=== PATIENT | female | born 1990 | race African-American/Black ===

== ENCOUNTER 2017-06-29 18:27 | Emergency (ER) | payer OTHER ==
[2017-06-29 18:33] VITALS: BP 155/100; PULSE 90; TEMP 99; BMI 45.9
--- NOTE | 2017-06-29 18:35 | PDOC ---
Rapid Medical Evaluation Chief Complaint: Respiratory Time Seen by Provider: 06/29/17 18:33 Medical Evaluation: Allergies Allergy/AdvReac Type Severity Reaction Status Date / Time No Known Allergies Allergy Verified 06/29/17 18:30 Vital Signs Temp Pulse Resp BP Pulse Ox 99 F 90 19 155/100 97 06/29/17 18:31 06/29/17 18:31 06/29/17 18:31 06/29/17 18:31 06/29/17 18:31 06/29/17 18:33 27yo Female patient that is 9 weeks with no significant past medical history presents to ED c/o possible influenza. Patient states her daughter and daughters' father were diagnosed with flu recently. She denies any other complaints at this time.
--- NOTE | 2017-06-29 19:30 | PDOC ---
History of Present Illness - General Chief Complaint: Respiratory Stated Complaint: COUGHING Time Seen by Provider: 06/29/17 18:33 - History of Present Illness Initial Comments: 06/29/17 19:21 CHIEF COMPLAINT: cough HISTORY OF PRESENT ILLNESS: 27yo F, 9 weeks , with no significant past medical history presents to ED concerns of flu due to new onset cough today. Patient states her daughter and was diagnosed with flu recently and "her father is here too and there's something going on with him too". She denies any fever, vomiting, diarrhea, or any other complaints at this time. No recent travel or sick contacts. PAST MEDICAL HISTORY: Denies past medical history FAMILY HISTORY: Denies SOCIAL HISTORY: Denies tobacco, alcohol, illicit drug use. SURGICAL HISTORY: Denies ALLERGIES: No known drug allergies REVIEW OF SYSTEMS as per HPI PHYSICAL EXAM General Appearance: Well-appearing, appropriately dressed. No apparent distress. HEENT: EOMI, PERRLA. No conjunctival pallor. No photophobia, scleral icterus. Respiratory/Chest: Lungs CTAB. Cardiovascular: RRR. S1, S2. Gastrointestinal/Abdominal: Normal bowel sounds. Abdomen soft, non-distended. No tenderness or rebound tenderness. No organomegaly, pulsatile mass, guarding , hernia, hepatomegaly, splenomegaly. Musculoskeletal/Extremities: Normal inspection. FROM of all extremities, normal capillary refill. Pelvis Stable. No CVA tenderness. No tenderness to extremities, pedal edema, swelling, erythema or deformity. Integumentary: Appropriate color, dry, warm. 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 Fully oriented, alert. Appropriate mood/affect. Motor strength 5/5. No appreciable EOM palsy, facial droop or sensory deficit. Past History - Past Medical History Allergies/Adverse Reactions: Allergies Allergy/AdvReac Type Severity Reaction Status Date / Time No Known Allergies Allergy Verified 06/29/17 18:30 Home Medications: Ambulatory Orders NK [No Known Home Medication] 11/22/15 COPD: No Other medical history: DENIES. - Suicide/Smoking/Psychosocial Hx Smoking History: Never smoked Hx Alcohol Use: Yes (weekends) Drug/Substance Use Hx: No Substance Use Type: None *Physical Exam - Vital Signs Last Vital Signs Temp Pulse Resp BP Pulse Ox 99 F 90 19 155/100 97 06/29/17 18:31 06/29/17 18:31 06/29/17 18:31 06/29/17 18:31 06/29/17 18:31 Medical Decision Making - Medical Decision Making 06/29/17 19:30 27yo F, 9 weeks , with no significant past medical history presents to ED concerns of flu due to new onset cough today. -flu swab *DC/Admit/Observation/Transfer Diagnosis at time of Disposition: Cough - Discharge Dispostion Disposition: HOME Condition at time of disposition: Stable Admit: No - Referrals Referrals: Monroe Will MD [Primary Care Provider] - - Patient Instructions Printed Discharge Instructions: DI for Cough -- Adult Additional Instructions: Your flu test was negative today. As discussed, you may take Tylenol or regular Robitussin for your cough. If you develop any fever, chills, vomiting, diarrhea , vaginal bleeding, abdominal pain, or any new or worsening symptoms, please return to the ER. - Post Discharge Activity
== END 2017-06-29 20:24 | disposition home or self-care (01) ==
LOC: JERFT 18:27
DX: O99.89 Other specified diseases and conditions complicating pregnancy, childbirth and the puerperium (principal); R05 Cough; Z3A.09 9 weeks gestation of pregnancy
CPT/HCPCS: 87804; 99281-25

== ENCOUNTER 2017-08-14 08:28 | Emergency (ER) | payer OTHER ==
[2017-08-14 08:32] VITALS: BP 156/76; PULSE 90; TEMP 98; BMI 47.3
--- NOTE | 2017-08-14 09:24 | PDOC ---
History of Present Illness - General Chief Complaint: Sore Throat Stated Complaint: SORE THROAT Time Seen by Provider: 08/14/17 08:41 History Source: Patient Exam Limitations: No Limitations - History of Present Illness Initial Comments: 08/14/17 09:19 Patient came for evaluation of sore throat pain. He is 15 weeks with twins, and was concerned about intermittent chills and questionable swelling to throat. States is able to drink fluids, has had no fever, has not noted any exudate and no one else at home is sick. Timing/Duration: unsure Severity: mild Associated Symptoms: denies: cough, fever/chills, headaches, malaise, nausea/ vomiting Past History - Travel Traveled outside of the country in the last 30 days: Yes Close contact w/someone who was outside of country & ill: Yes - Past Medical History Allergies/Adverse Reactions: Allergies Allergy/AdvReac Type Severity Reaction Status Date / Time No Known Allergies Allergy Verified 08/14/17 08:30 Home Medications: Ambulatory Orders NK [No Known Home Medication] 11/22/15 COPD: No DVT: No - Suicide/Smoking/Psychosocial Hx Smoking History: Never smoked Information on smoking cessation initiated: No Hx Alcohol Use: Yes (weekends) Drug/Substance Use Hx: No Substance Use Type: None Review of Systems - Review of Systems Able to Perform ROS?: Yes Is the patient limited Kyrgyz proficient: Yes Constitutional: Yes: Symptoms Reported, See HPI, Malaise. No: Fever, Loss of Appetite HEENTM: Yes: Symptoms Reported, See HPI, Throat Pain, Difficulty Swallowing. No : Throat Swelling, Mouth Pain Respiratory: Yes: See HPI. No: Symptoms reported, Cough All Other Systems: Reviewed and Negative *Physical Exam - Vital Signs Last Vital Signs Temp Pulse Resp BP Pulse Ox 98.0 F 90 18 156/76 100 08/14/17 08:30 08/14/17 08:30 08/14/17 08:30 08/14/17 08:30 08/14/17 08:30 - Physical Exam General Appearance: Yes: Nourished, Appropriately Dressed. No: Apparent Distress, Mild Distress HEENT: positive: LEXUS, Normal ENT Inspection, TMs Normal (congested but landmarks easily visualized), Pharyngeal Erythema (mild erythema with posterior sinus drainage noted), Rhinorrhea (clear). negative: Sinus Tenderness Neck: positive: Supple. 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 We'll treat conservatively due to *DC/Admit/Observation/Transfer Diagnosis at time of Disposition: Sinus drainage - Discharge Dispostion Disposition: HOME Condition at time of disposition: Stable Admit: No - Referrals - Patient Instructions Printed Discharge Instructions: DI for Common Cold Additional Instructions: Rest, drink lots of fluids: Teas, water, soups, Pedialyte Saltwater gargles Steamy showers/seem to face break up mucus Avoid contact with others until fevers and cough resolved Lots of handwashing and good hygiene Continue [id number] medications for symptomatic relief Tylenol or Motrin for fever and pain Followup with private physician in one to 2 days as needed Return to emergency department for worsened symptoms, fevers, dehydration - Post Discharge Activity
== END 2017-08-14 09:36 | disposition home or self-care (01) ==
LOC: JERFT 08:28
DX: O26.892 Other specified pregnancy related conditions, second trimester (principal); J34.89 Other specified disorders of nose and nasal sinuses; R09.82 Postnasal drip; Z3A.15 15 weeks gestation of pregnancy
CPT/HCPCS: 99281-25

== ENCOUNTER 2018-07-27 23:09 | Emergency (ER) | payer OTHER ==
[2018-07-27 23:13] VITALS: BP 174/105; PULSE 106; TEMP 98; BMI 47.3
[2018-07-27] MEDS ORDERED: diphenhydrAMINE HCL 50 MG CAPSULE PO ONE (23:20)
[2018-07-27] MEDS ORDERED: diphenhydrAMINE HCL 25 MG CAPSULE (FP) PO ONE (23:31)
--- NOTE | 2018-07-27 23:31 | PDOC ---
History of Present Illness - General Chief Complaint: Allergic Reaction Stated Complaint: ALLERGIC REACTION Time Seen by Provider: 07/27/18 23:18 History Source: Patient Exam Limitations: No Limitations - History of Present Illness Initial Comments: 07/27/18 23:26 Pt is a 28yo F with no significant PMH presenting to ED with complaints of hives and pruritis. Pt states that the hives started a few hours ago and was mainly on the L arm but has now spread all over. She has a history of getting hives and itchiness but it has never spread as much as it has today. She does not recall any triggers but thinks it might have been old glitter make up that has got on her skin. She states that sometimes when she cooks shrimp she gets some hives but was not around shrimp today. Denies new lotions, soaps, detergents. Denies SOB, wheezing, cough, abdominal pain, n/v/d, fevers, chills, lightheadedness. PMD: Wood PMH: none PSH: none Meds: none Allergies: nkda Social: social alcohol use Past History - Past Medical History Allergies/Adverse Reactions: Allergies Allergy/AdvReac Type Severity Reaction Status Date / Time No Known Allergies Allergy Verified 07/27/18 23:13 Home Medications: Ambulatory Orders Diphenhydramine HCl [Benadryl -] 25 mg PO Q8H #30 capsule 07/28/18 COPD: No DVT: No - Suicide/Smoking/Psychosocial Hx Smoking History: Never smoked Hx Alcohol Use: Yes (weekends) Drug/Substance Use Hx: No Substance Use Type: None Review of Systems - Review of Systems Constitutional: No: Chills, Fever HEENTM: No: Ear Pain, Nose Pain, Throat Pain, Throat Swelling Respiratory: No: Cough, Shortness of Breath, Wheezing Cardiac (ROS): No: Chest Pain, Lightheadedness, Palpitations, Syncope ABD/GI: No: Constipated, Diarrhea, Nausea, Vomiting, Abdominal cramping : No: Burning, Dysuria Musculoskeletal: No: Back Pain, Muscle Pain, Neck Pain Integumentary: Yes: See HPI, Erythema, Pruritus, Other (urticaria) Neurological: No: Headache, Numbness, Tingling, Weakness *Physical Exam - Vital Signs Last Vital Signs Temp Pulse Resp BP Pulse Ox 98.0 F 106 H 18 174/105 H 97 07/27/18 23:11 07/27/18 23:11 07/27/18 23:11 07/27/18 23:11 07/27/18 23:11 - Physical Exam General Appearance: Yes: Appropriately Dressed, Obese. No: Apparent Distress HEENT: positive: EOMI, LEXUS, Pharynx Normal Neck: positive: Trachea midline, Supple. negative: Lymphadenopathy (R), Lymphadenopathy (L) Respiratory/Chest: positive: Lungs Clear, Normal Breath Sounds. negative: Crackles, Rales, Rhonchi, Stridor, Wheezing Cardiovascular: positive: Regular Rhythm, Regular Rate, S1, S2. negative: Edema , JVD, Murmur Vascular Pulses: Carotid (R): 2+, Carotid (L): 2+, Dorsalis-Pedis (R): 2+, Doralis-Pedis (L): 2+ Gastrointestinal/Abdominal: positive: Normal Bowel Sounds, Soft. negative: Guarding, Rebound, Tenderness Musculoskeletal: negative: CVA Tenderness Extremity: positive: Normal Capillary Refill. negative: Swelling, Calf Tenderness Integumentary: positive: Normal Color, Dry, Warm, Hives (diffuse across arms and legs. 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 Pt states that the hives started a few hours ago and was mainly on the L arm but has now spread all over. She has a history of getting hives and itchiness but it has never spread as much as it has today. She does not recall any triggers but thinks it might have been old glitter make up that has got on her skin. She states that sometimes when she cooks shrimp she gets some hives but was not around shrimp today. Denies new lotions, soaps, detergents. Denies SOB, wheezing, cough, abdominal pain, n/v/d, fevers, chills, lightheadedness. Vitals: HR 106, hypertensive. PE: diffuse hives Pt is otherwise hemodynamically stable. No signs for anaphylaxis. No signs of GI involvement at this time. -Benadryl and Decadron. Rx for Benadryl. Low suspicion for HTN urgency/emergency. Can be dc home. Pt agrees to plan. Given return precautions *DC/Admit/Observation/Transfer Diagnosis at time of Disposition: Hives - Discharge Dispostion Disposition: HOME Condition at time of disposition: Improved - Prescriptions Prescriptions: Diphenhydramine HCl [Benadryl -] 25 mg PO Q8H #30 capsule - Referrals - Patient Instructions Printed Discharge Instructions: DI for Hives Additional Instructions: You were seen in the emergency room today for hives and itching. This is probably due to contact with a substance. A prescription was sent to your pharmacy for Benadryl. Take 25mg by mouth three times per day as needed for hives/itching. If your insurance does not cover this as a prescription, you can find it over the counter. I highly recommend that you see an upkeep worker: Dr. Lindsey Come back to the emergency room if you have difficulty breathing, have diarrhea or vomiting, rash gets worse or if any new concerning symptom develops. Thank you - Post Discharge Activity
[2018-07-28] MEDS ORDERED: DEXAMETHASONE LIQUID 0.5 MG/5 ML 240 ML BULK BOTTLE PO ONE (00:07)
--- NOTE | 2018-07-28 00:09 | PDOC ---
Attending Attestation - HPI HPI: 07/28/18 00:18 The patient is a 28 year old female, with no significant PMH who presents to the emergency department with hives and itchiness, that began a couple of hours ago. The patient notes that the hives appeared on her L arm and has now spread all over her body. The patient notes she has experienced hives before but they have never been this diffuse. The patient does not recall a specific trigger event but notes she was cleaning some of her old makeup, and glitter may have irritated her skin. The patient denies chest pain, shortness of breath, headache and dizziness. Denies wheezing and cough Denies fever, chills, nausea, vomit, diarrhea and constipation. Denies dysuria, frequency, urgency and hematuria. Allergies: NKA - Physicial Exam PE: 07/28/18 00:35 GENERAL: Well developed, well nourished. Awake and alert. No acute distress. HEENT: Normocephalic, atraumatic. PERRLA, EOMI. No conjunctival pallor. Sclera are non- icteric. Moist mucous membranes. Oropharynx is clear. No voice changes. NECK: Supple. Full ROM. No JVD. Carotid pulses 2+ and symmetric, without bruits. No thyromegaly. No lymphadenopathy. CARDIOVASCULAR: Regular rate and rhythm. No murmurs, rubs, or gallops. Distal pulses are 2+ and symmetric. PULMONARY: No evidence of respiratory distress. Lungs clear to auscultation bilaterally. No wheezing, rales or rhonchi. ABDOMINAL: Soft. Non-tender. Non-distended. No rebound or guarding. No organomegaly. Normoactive bowel sounds. MUSCULOSKELETAL Normal range of motion at all joints. No bony deformities or tenderness. No CVA tenderness. EXTREMITIES: No cyanosis. No clubbing. No pitting edema. No calf tenderness. SKIN: +hives on upper extremities bilaterally. +hives on lower extremities but disappearing. Warm and dry. Normal capillary refill. No jaundice. NEUROLOGICAL: Alert, awake, appropriate. Cranial nerves 2-12 intact. No deficits to light touch and temperature in face, upper extremities and lower extremities. No motor deficits in the in face, upper extremities and lower extremities. Normoreflexic in the upper and lower extremities. Normal speech. Toes are down- going bilaterally PSYCHIATRIC: Cooperative. Good eye contact. Appropriate mood and affect. <Lisa Moore - Last Filed: 07/28/18 00:35> - Resident Resident Name: Gisel Franco - ED Attending Attestation I have performed the following: I have examined & evaluated the patient, The case was reviewed & discussed with the resident, I agree w/resident's findings & plan - Medical Decision Making 07/28/18 01:10 Pt has hives on bilat arms and upper thighs. She has no SOB and no throat swelling. She states that she was cleaning out old [place] and cleaning dust and sparkles that previously caused her to break out into hives. Pt cannot recall any foods that she ate today that could have caused an allergy and she has taken no meds. She has no other complaints. Pt took no meds prior to arrival here. We treated with benadryl and decadron. She will go home with benadryl. She understands that it can make neeraj drowsy and that she should be carefull when taking care of her twin infants. Pt is stable for d/c home. She will be referred to Dr. Lidnsey, track welder. <Katelyn Chang - Last Filed: 07/28/18 01:12> Attestations - Attestations 07/28/18 00:35 Documentation prepared by Lisa Moore, acting as biomedical equipment tech for Katelyn Chang MD/DO. <Lisa Moore - Last Filed: 07/28/18 00:35>
[2018-07-28] MEDS ORDERED: DEXAMETHASONE SOD PHOSPHATE 10 MG/1 ML VIAL ONE (00:10)
== END 2018-07-28 01:10 | disposition home or self-care (01) ==
LOC: JER 23:09
DX: L50.9 Urticaria, unspecified (principal)
CPT/HCPCS: 99282-25

== ENCOUNTER 2019-01-30 19:18 | Emergency (ER) | payer OTHER | END 2019-01-30 23:30 | disposition home or self-care (01) | LOC: JER 19:18 ==

== ENCOUNTER 2019-07-19 19:48 | Emergency (ER) | payer OTHER ==
[2019-07-19 20:10] VITALS: BP 153/94; PULSE 113; TEMP 102.1; BMI 50.2
[2019-07-19] MEDS ORDERED: IBUPROFEN 600 MG TABLET (FP) PO ONE ×2 (21:41→21:49)
--- NOTE | 2019-07-19 21:44 | PDOC ---
History of Present Illness - General Chief Complaint: Cold Symptoms Stated Complaint: COUGH/CHILLS Time Seen by Provider: 07/19/19 21:26 History Source: Patient - History of Present Illness Initial Comments: 07/19/19 21:41 Chief complaint: Body aches and cough Patient is a healthy 29-year-old female with 1 day of body aches, cough, headache, runny nose. Patient does not have sore throat. Patient is able to eat and drink. Patient did not know she had a fever until she came to the hospital and they took her temperature in triage. Patient does not look acutely ill GENERAL/CONSTITUTIONAL: +fever, no: Weakness. dizziness HEAD, EYES, EARS, NOSE AND THROAT: No change in vision. No ear pain or discharge. No sore throat. CARDIOVASCULAR: No chest pain RESPIRATORY: No shortness of breath or +cough GASTROINTESTINAL: No pain, nausea, vomiting, diarrhea or constipation GENITOURINARY: No dysuria MUSCULOSKELETAL: No neck or back pain SKIN: No rash NEUROLOGIC: No headache, vertigo, loss of consciousness, or loss of sensation. GENERAL: The patient is awake, alert, and fully oriented, in no acute distress. HEAD: Normal with no signs of trauma. EYES: Pupils equal, round and reactive to light, sclera anicteric, conjunctiva clear. ENT: pharynx: no erythema, no exudate, uvula midline NECK: supple CHEST: clear, nontender, rr ABD: soft, nontender BACK: no tenderness or signs of injury EXTREMITIES: Normal range of motion, no edema. NEUROLOGICAL: Normal speech, normal gait. SKIN: Warm, Dry Past History - Past Medical History Allergies/Adverse Reactions: Allergies Allergy/AdvReac Type Severity Reaction Status Date / Time No Known Allergies Allergy Verified 01/30/19 19:24 Home Medications: Ambulatory Orders NK [No Known Home Medication] 07/19/19 COPD: No DVT: No HTN: Yes (borderline) - Immunization History Immunization Up to Date: Yes - Psycho Social/Smoking Cessation Hx Smoking History: Never smoked Have you smoked in the past 12 months: No Hx Alcohol Use: No Drug/Substance Use Hx: No Substance Use Type: None *Physical Exam - Vital Signs Last Vital Signs Temp Pulse Resp BP Pulse Ox 102.1 F H 113 H 19 153/94 95 07/19/19 20:06 07/19/19 20:06 07/19/19 20:06 07/19/19 20:06 07/19/19 20:06 Medical Decision Making - Medical Decision Making 07/19/19 21:42 Patient is a healthy 29-year-old female with 1 day of flu symptoms. Clinical exam is not concerning, discussed with patient use of Tamiflu. Patient is does not want Tamiflu. Will give patient Motrin here for fever. Will discharge home with supportive care Discussed issues, findings, results, applicable medications and treatments and follow-up. All these were understood and all questions were answered Discharge - Discharge Information Problems reviewed: Yes Clinical Impression/Diagnosis: Flu-like symptoms Condition: Stable Disposition: HOME - Admission No - Follow up/Referral Referrals: Masoud Travis [Primary Care Provider] - - Patient Discharge Instructions Patient Printed Discharge Instructions: Influenza Additional Instructions: Drink 2-3 L of water daily Take Tylenol 650 mg every 4 hours or Motrin 600 mg every 6 hours for fever and pain Return to the nearest ER if short of breath, unable to swallow or feeling sicker Followup with your doctor in one to 2 days - Post Discharge Activity
== END 2019-07-19 21:52 | disposition home or self-care (01) ==
LOC: JERFT 19:48
DX: J11.1 Influenza due to unidentified influenza virus with other respiratory manifestations (principal); I10 Essential (primary) hypertension
CPT/HCPCS: 99281-25

== ENCOUNTER 2019-07-21 21:44 | Emergency (ER) | payer OTHER ==
[2019-07-22] MEDS ORDERED: ACETAMINOPHEN 500 MG TABLET (FP) PO ONE (00:02)
--- NOTE | 2019-07-22 00:02 | PDOC ---
History of Present Illness - General Chief Complaint: Cold Symptoms Stated Complaint: Fever Time Seen by Provider: 07/22/19 00:00 History Source: Patient - History of Present Illness Initial Comments: 07/22/19 01:04 29-year-old female with nasal congestion,'s cough and sore throat with fever for the last 4 days. Patient was seen in our ER 3 days ago for similar symptoms and reports that symptoms is now getting better. Denies nausea, vomiting, abdominal pain, urinary symptoms. "My fever is not going down ". Patient reports that she took Tylenol at 8 PM ibuprofen. Patient reports that the daughter was sick with similar symptoms got well in 1 day 07/22/19 01:05 Past History - Past Medical History Allergies/Adverse Reactions: Allergies Allergy/AdvReac Type Severity Reaction Status Date / Time No Known Allergies Allergy Verified 07/22/19 00:04 Home Medications: Ambulatory Orders Acetaminophen [Tylenol] 650 mg PO QID PRN #30 capsule 07/22/19 Benzonatate [Tessalon Perle -] 100 mg PO TID PRN #21 capsule 07/22/19 Ibuprofen 600 mg PO QID PRN #20 tablet 07/22/19 COPD: No DVT: No HTN: Yes (borderline) - Immunization History Immunization Up to Date: Yes - Psycho Social/Smoking Cessation Hx Smoking History: Never smoked Have you smoked in the past 12 months: No Hx Alcohol Use: No Drug/Substance Use Hx: No Substance Use Type: None Review of Systems - Review of Systems Able to Perform ROS?: Yes Is the patient limited Brazilian proficient: No Constitutional: Yes: Fever HEENTM: Yes: Nose Congestion, Throat Pain Respiratory: Yes: Cough Cardiac (ROS): No: Symptoms Reported, See HPI, Chest Pain, Edema, Irregular Heart Rate, Lightheadedness, Palpitations, Syncope, Chest Tightness, Other ABD/GI: No: Symptoms Reported, See HPI, Abdominal Distended, Abd. Pain w/ defecation, Blood Streaked Bowels, Constipated, Diarrhea, Difficulty Swallowing , Nausea, Poor Appetite, Poor Fluid Intake, Rectal Bleeding, Vomiting, Indigestion, Abdominal cramping, Tarry Stools, Other Neurological: No: Symptoms reported, See HPI, Headache, Numbness, Paresthesia, Pre-Existing Deficit, Seizure, Tingling, Tremors, Weakness, Unsteady Gait, Ataxia, Dizziness, Other *Physical Exam - Vital Signs 07/22/19 01:08 Last Vital Signs Temp Pulse Resp BP Pulse Ox 98.6 F 104 H 19 151/96 99 07/21/19 21:45 07/21/19 21:45 07/21/19 21:45 07/21/19 21:45 07/21/19 21:45 - Physical Exam General Appearance: Yes: Appropriately Dressed HEENT: positive: Pharyngeal Erythema, Nasal Congestion Respiratory/Chest: positive: Lungs Clear, Normal Breath Sounds Cardiovascular: positive: Tachycardia Integumentary: positive: Normal Color, Dry, Warm Neurologic: positive: Fully Oriented, Alert, Normal Mood/Affect ED Progress Note - Progress Note Progress Note: 07/22/19 01:08 A: influenza P: influenza strep chest xray 07/22/19 03:57 Discharge - Discharge Information Problems reviewed: Yes Clinical Impression/Diagnosis: Influenza B Condition: Fair Disposition: HOME - Additional Discharge Information Prescriptions: Acetaminophen [Tylenol] 650 mg PO QID PRN #30 capsule PRN Reason: Fever Benzonatate [Tessalon Perle -] 100 mg PO TID PRN #21 capsule PRN Reason: Cough Ibuprofen 600 mg PO QID PRN #20 tablet PRN Reason: Fever - Follow up/Referral Referrals: Masoud Travis [Primary Care Provider] - - Patient Discharge Instructions Patient Printed Discharge Instructions: DI for Viral Upper Respiratory Infection -- Adult Additional Instructions: drink plenty of fluids. Use Tessalon Perles as prescribed for cough as needed Give Tylenol every 4 hours as needed for fever Give ibuprofen then every 6 hours as needed for fever Gargle with warm salty water Follow-up with your doctor as soon as possible. Return to the emergency room if symptoms worsen. - Post Discharge Activity Work/Back to School Note: Back to Work
[2019-07-22 00:06] VITALS: BP 151/96; PULSE 104; TEMP 98.6; BMI 50.2
[2019-07-22] MEDS ORDERED: SODIUM CHLORIDE FOR INHALATION 3 ML VIAL.NEB IH ONE (00:09)
[2019-07-22] MEDS ORDERED: ACETAMINOPHEN 325 MG TABLET (FP) ONE (01:04)
== END 2019-07-22 03:30 | disposition home or self-care (01) ==
LOC: JER 21:44
DX: J10.1 Influenza due to other identified influenza virus with other respiratory manifestations (principal)
CPT/HCPCS: 71046-TC-FY; 87070; 87804; 87880; 99282-25